=== PATIENT | female | born 1955 | race Caucasian/White ===

== ENCOUNTER 2020-01-29 11:51 | Outpatient (REF) | payer OTHER, SELFPAY ==
--- NOTE | 2020-01-29 11:57 | MM_ITS ---
EXAMINATION: MM SCREENING DIGITAL BREAST TOMOSYNTHESIS, BILATERAL CLINICAL INFORMATION: Screening. Asymptomatic. The lifetime risk of breast cancer based on the Tyrer-Cuzick Model is 15.7%. COMPARISON: Mammography: December 13, 2018 and studies dating back to July 11, 2013 TECHNIQUE: Digital breast tomosynthesis is performed in both the craniocaudal and mediolateral oblique views along with computer-aided detection (CAD). Synthesized 2D images are generated from the tomosynthesis. FINDINGS: The breasts are extremely dense, which lowers the sensitivity of mammography (ACR BI-RADS breast composition Category d). There are no significant masses, abnormal calcifications, or other abnormalities. MM/MM tomosynthesis screening BI IMPRESSION: There are no significant changes from prior study. ASSESSMENT: BI-RADS 1: Negative RECOMMENDATION: Routine annual mammography screening. This patient's information was entered into a reminder system with a target due date for their next mammogram.
== END 2020-01-29 11:52 | disposition home or self-care (01) ==
LOC: HO.MAMMO 11:51
PROVIDERS: Visit Provider Nurse Practitioner Family
DX: Z12.31 Encounter for screening mammogram for malignant neoplasm of breast (principal)
CPT/HCPCS: 77063; 77067

== ENCOUNTER 2021-06-11 07:20 | Outpatient (REF) | payer OTHER, SELFPAY ==
--- NOTE | ~2021-06-11 | MM_ITS ---
EXAMINATION: MM SCREENING DIGITAL BREAST TOMOSYNTHESIS, BILATERAL CLINICAL INFORMATION: Screening. Asymptomatic. The lifetime risk of breast cancer based on the Tyrer-Cuzick Model is 15.6%. COMPARISON: Mammography: 01/29/2020 and studies dating back to 03/27/2008. TECHNIQUE: Digital breast tomosynthesis is performed in both the craniocaudal and mediolateral oblique views along with computer-aided detection (CAD). Synthesized 2D images are generated from the tomosynthesis. FINDINGS: The breasts are heterogeneously dense, which may obscure small masses (ACR BI-RADS breast composition Category c). Stable parenchymal pattern to the right breast with no new abnormal dominant mass or suspicious grouping of microcalcifications. Imaging of the left breast demonstrates about the deep inferior aspect seen only on mediolateral oblique image a lobulated density measuring approximately 8 x 5 mm in size which spot compression study is recommended. If there is persistence of a density, then ultrasound could be performed. MM/MM tomosynthesis screening BI IMPRESSION: Question left breast density seen only on mediolateral oblique projection for further evaluation as described. ASSESSMENT: BI-RADS 0: Incomplete - Need Additional Imaging Evaluation RECOMMENDATION: 1. Additional views of the left breast. 2. Targeted ultrasound if warranted after review of the additional views. 3. Radiology department staff will contact the patient for additional imaging. This patient's information was entered into a reminder system with a target due date for their next mammogram.
== END 2021-06-11 07:21 | disposition home or self-care (01) ==
LOC: HO.MAMMO 07:20
PROVIDERS: Visit Provider Nurse Practitioner Family
DX: Z12.31 Encounter for screening mammogram for malignant neoplasm of breast (principal)
CPT/HCPCS: 77063; 77067

== ENCOUNTER 2021-06-24 14:14 | Outpatient (REF) | payer MEDICARE, SELFPAY ==
--- NOTE | ~2021-06-24 | MM_ITS ---
EXAMINATION: MM DIAGNOSTIC DIGITAL BREAST TOMOSYNTHESIS, LEFT US, BREAST, TARGETED, LEFT CLINICAL INFORMATION: Left breast density seen only on mediolateral oblique projection deep aspect just below the nipple line. COMPARISON: Mammography: 06/11/2021 and studies dating back to 05/25/2011. TECHNIQUE: Digital breast tomosynthesis is performed. 2D images are generated from the tomosynthesis. The following views are obtained: Spot compression views of the left breast in mediolateral oblique projection. ULTRASOUND: FINDINGS: The breasts are heterogeneously dense, which may obscure small masses (ACR BI-RADS breast composition Category c). The additional views demonstrate partial enhancement of dense breast parenchyma. No focal circumscribed mass identified. The density appears to lie right at the edge of the image. Targeted left breast ultrasound did not demonstrate any abnormal cystic or solid masses. No region of abnormal distal sound shadowing was appreciated. Results are discussed with the patient at time of visit. MM/MM tomosynthesis added views L IMPRESSION: Effacement of left breast density but adjacent to chest wall and in dense breast parenchyma. No ultrasound abnormality identified. Recommend 6 month follow-up right breast mammogram to ensure no developing mass is present. ASSESSMENT: BI-RADS 3: Probably Benign RECOMMENDATION: Diagnostic mammography in 6 months. This patient's information was entered into a reminder system with a target due date for their next mammogram.
--- NOTE | ~2021-06-24 | US_ITS ---
EXAMINATION: MM DIAGNOSTIC DIGITAL BREAST TOMOSYNTHESIS, LEFT Targeted left breast ultrasound CLINICAL INFORMATION: Left breast density seen only on mediolateral oblique projection deep aspect just below the nipple line. COMPARISON: Mammography: June 11, 2021 and studies dating back to May 25, 2011 TECHNIQUE: Digital breast tomosynthesis is performed. 2D images are generated from the tomosynthesis. The following views are obtained: Spot compression views of the left breast in mediolateral oblique projection. Targeted left breast ultrasound FINDINGS: The breasts are heterogeneously dense, which may obscure small masses (ACR BI-RADS breast composition Category c). The additional views demonstrate partial enhancement of dense breast parenchyma. No focal circumscribed mass identified. The density appears to lie right at the edge of the image. Targeted left breast ultrasound did not demonstrate any abnormal cystic or solid masses. No region of abnormal distal sound shadowing was appreciated. Results are discussed with the patient at time of visit. US/US breast LT limited IMPRESSION: Placement of left breast density but adjacent to chest wall and in dense breast parenchyma. No ultrasound abnormality identified. Recommend 6 month follow-up right breast mammogram to ensure no developing mass is present. ASSESSMENT: BI-RADS 3: Probably Benign RECOMMENDATION: Diagnostic mammography in 6 months.
== END 2021-06-24 14:15 | disposition home or self-care (01) ==
LOC: HO.MAMMO 14:14
PROVIDERS: Visit Provider Nurse Practitioner Family
DX: R92.2 Inconclusive mammogram (principal)
CPT/HCPCS: 76642; 77061; 77065

== ENCOUNTER 2022-01-20 10:49 | Outpatient (REF) | payer MEDICARE, SELFPAY ==
--- NOTE | ~2022-01-20 | MM_ITS ---
EXAMINATION: MM DIAGNOSTIC DIGITAL BREAST TOMOSYNTHESIS, LEFT CLINICAL INFORMATION: Left breast density posterior medial aspect, 6 month follow-up COMPARISON: Mammography: June 24, 2021 and studies dating back to October 05, 2015 TECHNIQUE: Digital breast tomosynthesis is performed in both the craniocaudal and mediolateral oblique views along with computer-aided detection (CAD). Synthesized 2D images are generated from the tomosynthesis. FINDINGS: The breasts are heterogeneously dense, which may obscure small masses (ACR BI-RADS breast composition Category c). There are no significant masses, abnormal calcifications, or other abnormalities. No left lobe nodule is identified. Results are provided to the patient at time of visit by the technologist. MM/MM tomosynthesis diagnostic LT IMPRESSION: There are no significant changes from prior study. ASSESSMENT: BI-RADS 1: Negative RECOMMENDATION: Routine annual mammography screening, due in 6 months. This patient's information was entered into a reminder system with a target due date for their next mammogram.
== END 2022-01-20 10:50 | disposition home or self-care (01) ==
LOC: HO.MAMMO 10:49
PROVIDERS: PCP Nurse Practitioner Family; Visit Provider Nurse Practitioner Family
DX: R92.2 Inconclusive mammogram (principal)
CPT/HCPCS: 77061; 77065

== ENCOUNTER 2022-06-29 07:55 | Outpatient (REF) | payer MEDICARE, SELFPAY ==
--- NOTE | ~2022-06-29 | MM_ITS ---
EXAMINATION: MM SCREENING DIGITAL BREAST TOMOSYNTHESIS, BILATERAL CLINICAL INFORMATION: Screening. Asymptomatic. The lifetime risk of breast cancer based on the Tyrer-Cuzick Model is 14%. COMPARISON: Mammography: January 20, 2022 and studies dating back to July 11, 2013 TECHNIQUE: Digital breast tomosynthesis is performed in both the craniocaudal and mediolateral oblique views along with computer-aided detection (CAD). Synthesized 2D images are generated from the tomosynthesis. FINDINGS: The breasts are heterogeneously dense, which may obscure small masses (ACR BI-RADS breast composition Category c). There are no significant masses, abnormal calcifications, or other abnormalities. MM/MM tomosynthesis screening BI IMPRESSION: No significant changes ASSESSMENT: BI-RADS 1: Negative RECOMMENDATION: Routine annual mammography screening. This patient's information was entered into a reminder system with a target due date for their next mammogram.
== END 2022-06-29 07:56 | disposition home or self-care (01) ==
LOC: HO.MAMMO 07:55
PROVIDERS: PCP Nurse Practitioner Family; Visit Provider Nurse Practitioner Family
DX: Z12.31 Encounter for screening mammogram for malignant neoplasm of breast (principal)
CPT/HCPCS: 77063; 77067

== ENCOUNTER 2023-07-05 07:37 | Outpatient (REF) | payer MEDICARE, SELFPAY ==
--- NOTE | ~2023-07-05 | MM_ITS ---
EXAMINATION: MM SCREENING DIGITAL BREAST TOMOSYNTHESIS, BILATERAL CLINICAL INFORMATION: Screening. Asymptomatic. COMPARISON: Mammography: 06/29/2022, 01/20/2022, 06/24/2021, 06/11/2021, 01/29/2020, and dating back to 2014. TECHNIQUE: Digital breast tomosynthesis is performed in both the craniocaudal and mediolateral oblique views along with computer-aided detection (CAD). Synthesized 2D images are generated from the tomosynthesis. An extra right CC view was provided for improved posterior tissue visualization. FINDINGS: The breasts are heterogeneously dense, which may obscure small masses (ACR BI-RADS breast composition Category c). There are vascular calcifications in both breasts. There are no suspicious masses, suspicious grouped calcifications, or areas of architectural distortion in either breast. The parenchymal pattern is stable from prior exams. No skin or axillary abnormalities. MM/MM tomosynthesis screening BI IMPRESSION: No mammographic evidence of malignancy. ASSESSMENT: BI-RADS BI-RADS 2 - Benign Findings RECOMMENDATION: Routine annual mammography screening. 1 year F/U In a patient with this heterogeneously dense breast parenchyma and positive family history for breast CA, consideration should be made for bilateral screening breast ultrasound as an adjunct, usually performed 6 months after screening mammography. This examination should not preclude the clinical evaluation of a suspicious palpable abnormality. This patient's information was entered into a reminder system with a target due date for their next mammogram.
== END 2023-07-05 07:38 | disposition home or self-care (01) ==
LOC: HO.MAMMO 07:37
PROVIDERS: PCP Student in an Organized Health Care Education/Training Program; Visit Provider Student in an Organized Health Care Education/Training Program
DX: Z12.31 Encounter for screening mammogram for malignant neoplasm of breast (principal)
CPT/HCPCS: 77063; 77067

== ENCOUNTER → 2023-07-05 07:45 | Outpatient (BNV) | payer MEDICARE, SELFPAY | PROVIDERS: PCP Student in an Organized Health Care Education/Training Program; Visit Provider Radiology Diagnostic Radiology | DX: Z12.31 Encounter for screening mammogram for malignant neoplasm of breast (principal) | CPT/HCPCS: 77063; 77067 ==

== ENCOUNTER 2024-07-17 07:18 | Outpatient (REF) | payer MEDICARE, SELFPAY ==
--- OUTSIDE RECORDS SUMMARY | 2024-07-17 07:20 | XMS_ITS ---
Author Organization [facility] Address [address] [place] [address] Care Team Providers Care Crating And Moving Estimator Name Role Phone NONE, NONE Primary Care Provider Aiden Mora [phone] REASON FOR VISIT f/u office visit for Ibs Encounters Encounter Location Date Provider Diagnosis [facility] [address] [facility] [address] [place] [address] 02/19/2024 Aiden Mccurdy Plan Of Treatment Next Appt Details Provider Name:Aiden Mccurdy , 10/01/2024 03:40:00 PM, [address], [address], [place], [address], Progress Notes * MAKENZIE AVILA EDOB:1955 (69 yo F)Acc No.[id number]:02/19/2024 Progress Notes Patient:?MAKENZIE AVILA Provider:?Aiden Mccurdy MD :1955???Age:68 Y???Sex:Female D ate:02/19/2024 Address:[address] [place], [place] [address] [id number] Subjective: * Chief Complaints: * ???1. f/u office visit for I bs. * Medical History:? Objective: * Vitals:? Assessment: Plan: * Treatment: * * The named appointment provid er may or may not be the originator of this progress note, and it is not deemed complete until electronically signed by the appointment provider. Sign off status: Pending * Provider:?Aiden Mccurdy MD Date:? 024 Generated for Brannon izaguirre/Alexanrdu/Malgorzataitting on:?07/17/2024 07:20 AM EDT
--- OUTSIDE RECORDS SUMMARY | 2024-07-17 07:20 | XMS_ITS | Patient Health Record ---
Author Organization [facility] Address [address] [place] [address] Care Team Providers Care Fisher Hand Line Name Role Phone NONE, NONE Primary Care Provider Aiden Mora Unavailable [phone] Allergies Allergen (clinical drug ingredient) Drug/Non Drug Allergy documented on EMR Reaction Allergy Type Onset Date Status Penicillin Unknown Drug Allergy Active Lamisil Unknown Drug Allergy Active Reason For Referral No Information Medications Medication SIG (Take, Route, Fr equency, Duration) Notes Start Date End Date Status Dicyclomine HCl 10 MG TAKE 1-2 CAPSULES BY MOUTH EVERY 6 HOURS NEEDED FOR ABDOMINAL CRAMPS/DISCOMFORT FOR 30 DAYS Orally Every 6 hours a sneeded for abdominal cramps/discomfort for 30 days Ac tive Readi-Cat 2 2 % 2 bottles as directe d Orally As directed for 1 days 05/29/2018 Active Linzess 145 MCG 1 capsule Orally BID for 30 day(s) 12/06/2017 Active Problems Problem Type SNOMED Code ICD Code Onset Dates Problem Status W/U Status Risk Notes Problem 623845875 Left lower quadrant pain (R10.32) Active confirmed Problem 441973022 Encounter for screening for malignant neoplasm of colon (Z12.11) Active confirmed Problem 720261009 Irritable bowel syndrome with diarrhea (K58.0) Active confirmed Problem 554765491 Irritable bowel syndrome with constipation (K58.1) Active confirmed Encounters Encounter Location Date Provider Diagnosis [facility] [address] [place] [address] 12/20/2023 Aiden Mccurdy [facility] [address] [place] [address] 02/12/2024 Aiden Mccurdy [facility] [address] [place] [address] 02/18/2024 Aiden Mccurdy Plan Of Treatment Pending Test Test Name Order Date URINALYSIS + MICROSCOPIC, CLEAN CATCH CT ABD & PELVIS NO CONTRAST 05/29/2018 CT ABD & PELVIS WWO CONTRAST 05/28/2018 Future Test Test Name Order Date COLONOSCOPY 12/06/2017 Next Appt Details Provider Name:Aiden Mccurdy , 10/01/2024 03:40:00 PM, [address], [address], [place], [address], Insurance Providers Payer Name Payer Address Payer Phone Subscriber Number Group Number Insured Name Patient Relationship to Insured Coverage Start Date Coverage End Date [facility] [address] [place] [address] [id number] MAKENZIE AVILA Self - patient is the insured MEDICARE OF [place] [address] [facility] [place] [address] [id number] MAKENZIE AVILA Self - patient is the insured Medical (General) History Medical History History ICD Code EGD and colonoscopy 8--the upper endoscopy revealed normal duodenal biopsies, minimal hiatal hernia, no esophagitis, no Cruz's esophagus, no significant gastritis, nor H. pylori infection; the colonoscopy was normal, without any sign of inflammatory bowel disease, microscopic colitis, nor polyps--small internal hemorrhoids were noted Lifelong irritable bowel syndrome Denies DE,DM,CVA,Lung disease,renal dise ase Abdominal ultrasound in [place] 2013 revealed small gallstones, but was otherwise unremarkable--she appears to be asymptomatic in this regard Surgical History Surgery Date(Month/Year) x2 CCY appendectomy
--- OUTSIDE RECORDS SUMMARY | 2024-07-17 07:21 | XMS_ITS ---
Author Organization [facility] Address [address] [place] [address] Care Team Providers Care Glass Setter Name Role Phone NONE, NONE Primary Care Provider Aiden Mora [phone] REASON FOR VISIT ov appt Encounters Encounter Location Date Provider Diagnosis [facility] [address] [place] [address] 02/18/2024 Aiden Mccurdy Plan Of Treatment Next Appt Details Provider Name:Aiden Mccurdy , 10/01/2024 03:40:00 PM, [address], [address], [place], [address], Progress Notes * MAKENZIE AVILA EDOB:1955 (68 yo F)Acc No.[id number]:02/18/2024 Patient:?MAKENZIE AVILA :1955???Age:68 Y???Sex:Female Address:[address] [place] [address] [place] [address] * true * Date:? Generated for Printi zina/Alexandru/eTransmitting on:?07/17/2024 07:21 AM EDT
--- OUTSIDE RECORDS SUMMARY | 2024-07-17 07:21 | XMS_ITS ---
Author Organization [facility] Address [address] [place] [address] Care Team Providers Care Import Export Clerk Name Role Phone NONE, NONE Primary Care Provider Aiden Mora Unavailable [phone] REASON FOR VISIT Patient presents today for IBS Encounters Encounter Location Date Provider Diagnosis [facility] [address] [facility] [address] [place] [address] 06/17/2024 Aiden Mccurdy Plan Of Treatment Next Appt Details Provider Name:Aiden Mccurdy , 10/01/2024 03:40:00 PM, [address], [address], [place], [address], Progress Notes * MAKENZIE AVILA EDOB:1955 (69 yo F)Acc No.[id number]:06/17/2024 Progress Notes Patient:?MAKENZIE AVILA Provider:?Aiden Mccurdy MD :1955???Age:68 Y???Sex:Female D ate:06/17/2024 Address:[address] [place], [place] [id number] Subjective: * Chief Complaints: * ???1. Patient presents today for IBS. * Medical History:? Objective: * Vitals:? Assessment: Plan: * Treatment: * * The named appointment provid er may or may not be the originator of this progress note, and it is not deemed complete until electronically signed by the appointment provider. Sign off status: Pending * Provider:?Aiden Mccurdy MD Date:? 025 Generated for Brannon izaguirre/Alexandru/Amita on:?07/17/2024 07:20 AM GEOT
== END 2024-07-17 07:19 | disposition home or self-care (01) ==
LOC: HO.MAMMO 07:18
PROVIDERS: PCP Student in an Organized Health Care Education/Training Program; Visit Provider Nurse Practitioner Family
DX: Z12.31 Encounter for screening mammogram for malignant neoplasm of breast (principal)
CPT/HCPCS: 77063; 77067

== ENCOUNTER → 2024-07-17 07:30 | Outpatient (BNV) | payer MEDICARE, SELFPAY | PROVIDERS: PCP Student in an Organized Health Care Education/Training Program; Visit Provider Internal Medicine | DX: Z12.31 Encounter for screening mammogram for malignant neoplasm of breast (principal) | CPT/HCPCS: 77063; 77067 ==